=== PATIENT | female | born 1995 | race Caucasian/White ===

== ENCOUNTER 2022-11-29 04:23 | Emergency (ER) | payer BC, OTHER ==
[~2022-11-29] VITALS: Ht 157.5 cm; Wt 75.4 kg
[2022-11-29 04:29] VITALS: O2SAT 97
[2022-11-29 04:58] LABS: BASOPHILS % 0.4 % (0.0-2.0); EOSINOPHILS % 0.4 % (0.0-5.0); HEMATOCRIT. 36.2 % (36.0-48.0); HEMOGLOBIN. 11.7 g/dL (12.0-16.0); LYMPHOCYTES % 14.5 % (20.0-50.0); MEAN CORPUSCULAR HEMOGLOBIN 27.8 pg (28.0-32.0); MEAN CORPUSCULAR HGB CONC 32.3 g/dL (31.0-37.0); MEAN CORPUSCULAR VOLUME 86.1 fL (81.0-99.0); MEAN PLATELET VOLUME 7.6 fl (7.4-10.4); MONOCYTES % 4.8 % (2.0-8.0); NEUTROPHILS % 79.9 % (40.0-76.0); PLATELET 311 x1000/uL (130-400); RED CELL DISTRIBUTION WIDTH 14.1 % (11.6-14.6); WHITE BLOOD COUNT 15.1 x1000/uL (4.5-11.0)
[2022-11-29 05:01] LABS: CLARITY URINE CLOUDY (CLEAR); COLOR URINE YELLOW (YELLOW); GLUCOSE URINE NEGATIVE (NEGATIVE); KETONES URINE NEGATIVE (NEGATIVE); LEUKOCYTE ESTERASE URINE 1+ (NEGATIVE); NITRITE URINE POSITIVE (NEGATIVE); OCCULT BLOOD URINE 2+ (NEGATIVE); PROTEIN URINE 2+ (NEGATIVE); SPECIFIC GRAVITY URINE 1.021 (1.005-1.030); UROBILINOGEN URINE 0.2 E.U./dL (0.2-1.0)
[2022-11-29 05:07] LABS: CHLORIDE 107 mEq/L (98-107); INDEX HEMOLYSI 1 (1-3); INDEX ICTERIC 1 (1-4); INDEX LIPEMIC 1 (1-3); POTASSIUM 3.4 mEq/L (3.5-5.1); SODIUM 138 mEq/L (136-145)
[2022-11-29 05:15] LABS: ALANINE AMINOTRANSFERASE 22 IU/L (13-61); ALBUMIN 3.7 g/dL (3.4-5.0); ASPARTATE AMINOTRANSFERASE 10 IU/L (15-37); BILIRUBIN TOTAL 0.2 mg/dL (0.1-1.0); CALCIUM 8.8 mg/dL (8.5-10.1); CARBON DIOXIDE 26 mEq/L (21-32); CREATININE 0.5 mg/dL (0.6-1.3); GLUCOSE 116 mg/dL (70-105); PROTEIN TOTAL 7.4 g/dL (6.0-8.3); UREA NITROGEN BLOOD 15 mg/dL (7-21)
[2022-11-29 05:24] LABS: BACTERIA URINE 4+; SQUAMOUS EPITHELIAL CELL URINE 1+ /lpf (RARE/1+)
[2022-11-29] MEDS ORDERED: MORPHINE SULFATE 4 MG/ML CPJ (NOT FOR IM USE) IV STA (05:49)
[2022-11-29] MEDS ORDERED: FAMOTIDINE 20MG/2ML VIAL IV STA (05:49)
[2022-11-29] MEDS ORDERED: ONDANSETRON HCL 4MG/2ML INJ IV STA (05:49)
[2022-11-29] MEDS ORDERED: SODIUM CHLORIDE 0.9% 1,000 ML IV ONE (06:00)
[2022-11-29 06:54] LABS: CHLORIDE 106 mEq/L (98-107); INDEX HEMOLYSI 1 (1-3); INDEX ICTERIC 1 (1-4); INDEX LIPEMIC 1 (1-3); POTASSIUM 3.4 mEq/L (3.5-5.1); SODIUM 139 mEq/L (136-145)
[2022-11-29 07:07] LABS: ALANINE AMINOTRANSFERASE 23 IU/L (13-61); ALBUMIN 3.9 g/dL (3.4-5.0); ASPARTATE AMINOTRANSFERASE 10 IU/L (15-37); BILIRUBIN TOTAL 0.2 mg/dL (0.1-1.0); CARBON DIOXIDE 24 mEq/L (21-32); CREATININE 0.5 mg/dL (0.6-1.3); GLUCOSE 102 mg/dL (70-105); PROTEIN TOTAL 7.5 g/dL (6.0-8.3); UREA NITROGEN BLOOD 16 mg/dL (7-21)
[2022-11-29 07:09] VITALS: BP 121/74; PULSE 78; RESP 20
[2022-11-29 07:11] LABS: TROPONIN I HIGH SENSITIVITY < 4 ng/L (<54)
[2022-11-29] MEDS ORDERED: CEFTRIAXONE 1GM PREMIX 50 ML IV ONE (07:15)
[2022-11-29] MEDS ORDERED: IBUP-2029 MT (08:01)
[2022-11-29] MEDS ORDERED: CEPH500C2 MT (08:01)
[2022-11-29] MEDS ORDERED: HYDR-4001 MT (08:01)
[2022-11-29] MEDS ORDERED: ONDA4TAB11 PO (08:01)
[2022-11-29] MEDS ORDERED: ACETAMINOPHEN 325MG TABLET PO ONE (08:15)
[2022-11-29 08:20] VITALS: TEMP 98.3
== END 2022-11-29 08:00 | disposition home or self-care (01) ==
LOC: ER 04:23
DX: N10 Acute pyelonephritis (principal)
CPT/HCPCS: 80053; 81003; 81025; 83690; 85025; 87086; 87186; 84484; 87077; 36415; 71045; 76705; 96365; 96375; 99285; J0696; J3490; J2405; J2270; J7030; Z7610 ×2

== ENCOUNTER 2022-12-01 09:10 | Emergency (ER) | payer BC ==
[~2022-12-01 09:10] MED LIST: CEPH500C2 MT; HYDR-4001 MT; IBUP-2029 MT; ONDA4TAB11 PO
[2022-12-01 09:13] VITALS: PULSE 129
== END 2022-12-01 10:24 | disposition left against medical advice (07) ==
LOC: ER 09:10
DX: Z53.21 Procedure and treatment not carried out due to patient leaving prior to being seen by health care provider (principal)
CPT/HCPCS: 99281